=== PATIENT | female | born 1995 | race Caucasian/White ===

== ENCOUNTER 2017-03-14 01:01 | Emergency (ER) | payer SELFPAY ==
--- NOTE | 2017-03-14 01:03 | EDPHY ---
H & P Time Seen by Provider: 03/14/17 01:02 HPI/ROS: CHIEF COMPLAINT: Alcohol intoxication HISTORY OF PRESENT ILLNESS: The patient is a university student. Patient was found by bystanders to be severely intoxicated and therefore they called EMS system. Nasal trumpet was placed in route. Patient denies any injuries, denies loss of consciousness, denies any recent trauma. Patient denies coingestion, patient denies suicidal or homicidal behavior. REVIEW OF SYSTEMS: Constitutional: No fever, no chills. Eyes:No visual changes. ENT: No sore throat. Respiratory: No cough, no shortness of breath. Cardiac: No chest pain. Gastrointestinal: No abdominal pain, vomiting or diarrhea. Genitourinary: No hematuria. Musculoskeletal: No back pain. Skin: No rashes. Neurological: No headache. PAST MEDICAL HISTORY: None PAST SURGICAL HISTORY: None SOCIAL HISTORY: Student, single, denies tobacco or drug use, drinks alcohol occasionally PHYSICAL EXAM: General Appearance: Alert, well hydrated, appropriate, and non-toxic appearing. Head: Atraumatic without scalp tenderness or obvious injury Eyes: Pupils equal, round, reactive to light, no injection. Ears: Clear bilaterally, no perforation, normal landmarks Nose: Atraumatic, no rhinorrhea, clear. Throat: mucus membranes moist. Neck: Supple, non-tender, no lymphadenopathy. Respiratory: No retractions, no distress, no wheezes, and no accessory muscle use. Lungs are clear to auscultation bilaterally. Cardiovascular: Regular rate and rhythm, no murmurs, rubs, or gallops. Gastrointestinal: Abdomen is soft, non-tender, non-distended Musculoskeletal: Normal active ROM of all extremities, atraumatic. Neurological: Alert, appropriate, and interactive. Moves all extremities equally. Skin: No rashes, good turgor, no nodules on palpation. MEDICAL DECISION MAKING: I serially examined this patient since the patient's arrival here in the emergency department. Shortly into her stay, she became quite agitated, yelling and screaming, thrashing about. She was unable to calm with coaching from the nurse. She required Versed 5 mg IM for sedation. After this she slept and then continues to become more and more sober with each examination. I serially questioned the patient and the patient's story given initially has not changed. The patient still denies any trauma, any head injury, and any illicit drug use. At this point, the patient is walking the department freely and is clinically sober. We're discharging the patient to the [facility] in stable condition. Source: EMS Exam Limitations: Intoxication Constitutional: Initial Vital Signs Temperature (C) 36.4 C 03/14/17 01:10 Heart Rate 123 H 03/14/17 01:10 Respiratory Rate 18 03/14/17 01:10 Blood Pressure 127/77 H 03/14/17 01:10 O2 Sat (%) 95 03/14/17 01:10 O2 Delivery Mode Room Air Allergies/Adverse Reactions: Unable to Assess Allergy (Unverified 03/14/17 02:31) Home Medications: Medication Instructions Recorded Controll 03/14/17 Medical Decision Making - Data Points Medications Given: Discontinued Medications Sodium Chloride (Ns) 1,000 mls @ 0 mls/hr IV EDNOW ONE; Wide Open PRN Reason: Protocol Stop: 03/14/17 01:34 Last Admin: 03/14/17 02:04 Dose: Not Given Midazolam HCl (Versed) 4 mg IM ONCE ONE Stop: 03/14/17 01:46 Last Admin: 03/14/17 02:05 Dose: 4 mg Ondansetron HCl (Zofran) 4 mg IVP EDNOW ONE Stop: 03/14/17 01:34 Last Admin: 03/14/17 02:04 Dose: Not Given Departure - Departure Disposition: Home, Routine, Self-Care Clinical Impression: Alcohol intoxication delirium Instructions: Alcohol Intoxication (ED), Abuse of Alcohol (ED) Referrals: [facility],. [Clinic] - As per Instructions
[2017-03-14] MEDS ORDERED: NS 1,000 ML IV ONE (01:33)
[2017-03-14] MEDS ORDERED: ONDANSETRON 4 MG/2 ML VIAL IVP ONE (01:33)
[2017-03-14] MEDS ORDERED: MIDAZOLAM 2 MG/2 ML VIAL ONE (01:43)
[2017-03-14] MEDS ORDERED: MIDAZOLAM 2 MG/2 ML VIAL IM ONE (01:45)
[2017-03-14 06:19] VITALS: BP 127/76; PULSE 110; RESP 18; TEMP 97.9; O2SAT 100
== END 2017-03-14 06:29 | disposition home or self-care (01) ==
DX: F10.121 Alcohol abuse with intoxication delirium (principal)
CPT/HCPCS: J2250; J2405